=== PATIENT | female | born 1975 | race Caucasian/White ===

== ENCOUNTER → 2016-11-02 | Outpatient (CLI) | payer BC ==
[~2016-11-02] MED LIST: CYCL10TA2 PO; DULO60CA6 PO; ESTR8.1S2 TD; GABA600T2 PO; IOHEXOL 180 MG/ML 10 ML VIAL. ONE; methylPREDNISolone ACETATE 40 MG/ML VIAL. ONE; methylPREDNISolone ACETATE 80 MG/ML VIAL. ONE
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
--- NOTE | 2016-11-11 09:55 | PAIN ---
DATE OF SERVICE: 11/02/2016 ADDENDUM For documentation of procedure. DIAGNOSES: Lumbar radiculopathy with lumbar compression fracture. PROCEDURE: Lumbar epidural steroid injection in translaminar approach at the L2-L3 level using C-arm fluoroscopic guidance under sterile prep and draping using local anesthesia. MEDICATION INJECTED: 120 mg of Depo-Medrol plus 10 mL of preservative-free normal saline and 2 mL of Isovue for contrast. CONDITION AT DISCHARGE: Stable. The patient tolerated the procedure well, had no complications. BOBBY LOERA MD DR: JULIET/jud JOB#: [id number] / [id number]
== END | disposition home or self-care (01) ==
LOC: PNCL 07:40 → MERGE 07:40
PROVIDERS: ATTEND Anesthesiology
DX: M48.56XA Collapsed vertebra, not elsewhere classified, lumbar region, initial encounter for fracture (principal); M54.10 Radiculopathy, site unspecified; F17.210 Nicotine dependence, cigarettes, uncomplicated; Z90.710 Acquired absence of both cervix and uterus
CPT/HCPCS: 62323; J1030; J1040